=== PATIENT | female | born 1945 | race Caucasian/White ===

== ENCOUNTER → 2019-11-29 13:45 | Outpatient (CLI) | payer OTHER, SELFPAY ==
--- NOTE | ~2019-11-29 | DEXA_ITS ---
Bone Density Report Name: Emma Camacho Age: 74 Sex: Female Ethnicity: White Date of : 1945 Indication: postmenopausal; screening for osteoporosis; height loss; Referring Provider: NAKUL KENYON Study: Bone densitometry was performed. Exam Date: November 29, 2019 Accession number: [id number] Bone Density: Region BMD T-score Z-score Classification AP Spine (L1, L2, L3) 1.029 0.1 2.3 Normal Femoral Neck (Left) 0.664 -1.7 0.3 Osteopenia Total Hip (Left) 0.900 -0.3 1.3 Normal Femoral Neck (Right) 0.715 -1.2 0.7 Osteopenia Total Hip (Right) 0.914 -0.2 1.4 Normal Total Hip Mean 0.907 -0.3 1.4 Normal World Health Organization criteria for BMD impression classify patients as: Normal (T-score at or above -1.0), Osteopenia (T-score between -1.0 and -2.5), or Osteoporosis (T-score at or below -2.5). 10-year Fracture Risk(1): Major Osteoporotic Fracture 10% Hip Fracture 1.8% Reported Risk Factors: [place] (), Neck BMD=0.664, BMI=33.3 (1) FRAX(R) Version 3.08. Fracture probability calculated for an untreated patient. Fracture probability may be lower if the patient has received treatment. Previous Exams: Region Exam Age BMD T-score BMD Change BMD Change Date g/cm2 vs Baseline vs Previous AP Spine(L1, L2, L3) 11/29/2019 74 1.029 0.1 0.085* 0.124* 03/26/2017 72 0.905 -1.0 -0.039* -0.024* 02/26/2015 69 0.929 -0.8 -0.015 -0.015 02/15/2013 67 0.944 -0.7 0.000 0.000 01/05/2009 63 0.944 -0.7 Total Hip(Left) 11/29/2019 74 0.900 -0.3 -0.026 -0.032* 03/26/2017 72 0.933 -0.1 0.006 -0.016 02/26/2015 69 0.948 0.1 0.022 0.005 02/15/2013 67 0.943 0.0 0.017 0.017 01/05/2009 63 0.926 -0.1 Total Hip(Right) 11/29/2019 74 0.914 -0.2 0.033* 0.021 03/26/2017 72 0.894 -0.4 0.012 -0.023 02/26/2015 69 0.917 -0.2 0.035* -0.024 02/15/2013 67 0.941 0.0 0.059* 0.059* 01/05/2009 63 0.882 -0.5 *Denotes significance at 95% confidence level, LSC for AP Spine = 0.022 g/cm2, LSC for Total Hip = 0.027 g/cm2 Clinical Information Provided by Patient: Has used the following medications: Vitamin D, Calcium Patient maximum height was 62.5 Menopause Age: 42 No regular weight bearing exercise Does not regularly consume dairy prod
--- NOTE | ~2019-11-29 | MM_ITS ---
EXAMINATION: MM screening janna BI w viviana HISTORY: Screening mammogram TECHNIQUE: Craniocaudal and mediolateral oblique 3-D tomosynthesis images were obtained and synthetic 2-D images were generated. CAD analysis was submitted and interpreted. COMPARISON: 03/26/2017, 02/26/2015 bilateral digital screening mammogram examinations BREAST PARENCHYMAL COMPOSITION: The breasts are almost entirely fatty. FINDINGS: There is no evidence of suspicious mass, calcification, or architectural distortion to sugg est malignancy in either breast. There has been no suspicious interval change. IMPRESSION: 1. No mammographic evidence of malignancy. 2. Recommend routine screening mammography in one year. BI-RADS Category 1: Negative Reviewed, dictated and finalized at location A.
== END ==
PROVIDERS: Visit Provider Internal Medicine
DX: Z12.31 Encounter for screening mammogram for malignant neoplasm of breast (principal); Z78.0 Asymptomatic menopausal state; M85.852 Other specified disorders of bone density and structure, left thigh; M85.851 Other specified disorders of bone density and structure, right thigh
CPT/HCPCS: 77063; 77067; 77080

== ENCOUNTER 2022-10-16 09:31 | Outpatient (CLI) | payer OTHER, SELFPAY ==
[2022-10-16 19:07] LABS: Alanine Aminotransferase 28 U/L (6-35); Albumin Level 4.5 g/dL (3.5-5.1); Alkaline Phosphatase 48 U/L (38-126); Anion Gap 6 mmol/L (8-16); Aspartate Amino Transferase 32 U/L (14-36); Bilirubin,Total 0.5 mg/dL (0.2-1.3); Blood Urea Nitrogen 18 mg/dL (7-17); Calcium 8.9 mg/dL (8.4-10.2); Carbon Dioxide 29 mmol/L (22-30); Chloride 101 mmol/L (98-107); Estimated Glomerular Filt Rate 54; Glucose 98 mg/dL (65-110); Potassium 4.6 mmol/L (3.4-5.0); Sodium 136 mmol/L (137-145)
== END 2022-10-16 09:32 | disposition home or self-care (01) ==
LOC: ANHGOSHLAB 09:32
PROVIDERS: PCP Family Medicine; Visit Provider Family Medicine
DX: Z13.228 Encounter for screening for other metabolic disorders (principal); Z12.11 Encounter for screening for malignant neoplasm of colon; Z13.220 Encounter for screening for lipoid disorders
CPT/HCPCS: 36415; 80053

== ENCOUNTER 2022-10-22 10:37 | Outpatient (CLI) | payer OTHER, SELFPAY ==
[2022-10-22 20:09] LABS: IFOB Positive Control Positive; Immunochemical Fecal Occult Bl Negative (N)
[2022-10-22 21:16] LABS: Cholesterol 126 mg/dL (0-200); HDL Direct 32 mg/dL; Triglycerides 151 mg/dL (<150)
[2022-10-22 21:27] LABS: LDL Cholesterol Direct 60 mg/dL
== END 2022-10-22 10:38 | disposition home or self-care (01) ==
LOC: ANHGOSHLAB 10:39
PROVIDERS: PCP Family Medicine; Visit Provider Family Medicine
DX: E78.2 Mixed hyperlipidemia (principal); Z12.11 Encounter for screening for malignant neoplasm of colon
CPT/HCPCS: 36415; 80061

== ENCOUNTER → 2022-11-04 11:48 | Outpatient (CLI) | payer OTHER, SELFPAY ==
--- NOTE | ~2022-11-04 | MM_ITS ---
EXAMINATION: MM screening janna BI w viviana HISTORY: Screening mammogram TECHNIQUE: Craniocaudal and mediolateral oblique 3-D tomosynthesis images were obtained and synthetic 2-D images were generated. CAD analysis was submitted and interpreted. COMPARISON: 11/25/2019, 03/26/2017 bilateral screening mammogram examinations BREAST PARENCHYMAL COMPOSITION: The breasts are almost entirely fatty. FINDINGS: There is no evidence of suspicious mass, calcification, or architectural distortion to sugg est malignancy in either breast. There has been no suspicious interval change. IMPRESSION: 1. No mammographic evidence of malignancy. 2. Recommend routine screening mammography in one year. BI-RADS Category 1: Negative Reviewed, dictated and finalized at location A. GER TRANSITION
== END ==
PROVIDERS: PCP Family Medicine; Visit Provider Family Medicine
DX: Z12.31 Encounter for screening mammogram for malignant neoplasm of breast (principal)
CPT/HCPCS: 77063; 77067

== ENCOUNTER → 2023-04-14 11:27 | Outpatient (CLI) | payer OTHER, SELFPAY ==
--- NOTE | ~2023-04-14 | XR_ITS ---
Clinical Indication: Shortness of breath PA and lateral views of the chest: Comparison: 05/25/2009 Findings: The lungs are clear, without evidence of focal consolidation or pleural effusion. Cardiome diastinal silhouette is within normal limits. Bones and soft tissues are unremarkable. Impression: Normal chest. Reviewed, dictated and finalized at location . Impression: Normal chest.
== END ==
PROVIDERS: PCP Family Medicine; Visit Provider Family Medicine
DX: R06.02 Shortness of breath (principal)
CPT/HCPCS: 71046

== ENCOUNTER 2023-07-23 07:56 | Outpatient (CLI) | payer OTHER, SELFPAY ==
--- NOTE | ~2023-07-23 | NM_ITS ---
EXAMINATION: NM gin stress w perfusion DATE: 07/23/2023 11:01 INDICATION: Other forms of dyspnea. TECHNIQUE: Rest images were obtained following intravenous administration of 9.7 mCi Tc99m tetrofosmi n (Myoview). The patient was infused intravenously with Lexiscan (regadenoson). Then, 31.4 mCi Tc99m tetrofosmin (Myoview) was administered intravenously, and supine and prone stress images were obtaine d. Data was reconstructed into short axis and horizontal and vertical long axis SPECT images. Gated S PECT images were also obtained. COMPARISON: None. FINDINGS: There is no definite reversible or fixed perfusion abnormality to suggest ischemia or infar ction. There is no segmental wall motion abnormality. Left ventricular ejection fraction measures > 70%. IMPRESSION: 1. No definite ischemia or infarct. 2. Normal left ventricular ejection fraction measuring >70%. Reviewed, dictated and finalized at location A. 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
--- NOTE | 2023-07-23 08:19 | ECHO_ITS ---
Patient Info Name: Emma Camacho Age: 78 years : 1945 Gender: Female Ht: 62 in Wt: 175 lbs BSA: 1.90 m2 HR: 67 bpm BP: 125 / 101 mmHg Heart Rhythm: Sinus Rhythm Technical Quality: Good Exam Date: 07/23/2023 10:39 AM Exam Location: Echo Lab Patient Status: Outpatient Admit Date: 07/23/2023 Staff Ordering Physician: Fortino Nice DO Cupola Liner Helper: Davonte Stallings RDCS Attending Provider: Fortino Nice DO Referring Physician: Arlet OCHOA; Exam Type: CA echo doppler color flow Study Info Indications - other form of dyspnea Complete two-dimensional, color flow and Doppler transthoracic echocardiogram is performed. Summary 1. Complete two-dimensional, color flow and Doppler transthoracic echocardiogram is performed. 2. Left ventricular chamber dimension is normal. 3. Left ventricular systolic function is normal, estimated at 65-70%. 4. The left ventricular diastolic function is grade I diastolic dysfunction. 5. E/e' 8 is minimally elevated. 6. There is trace tricuspid valve regurgitation. 7. No pulmonary hypertension, estimated pulmonary arterial systolic pressure is 21 mmHg. Left Ventricle E/e' 8 is minimally elevated. Left ventricular chamber dimension is normal. Left ventricular systolic function is normal, estimated at 65-70%. The left ventricular diastolic function is grade I diastolic dysfunction. Right Ventricle Right ventricular systolic function is normal and with normal TAPSE 2.6 cm. Right ventricular chamber dimension is normal. Left Atria Left atrial chamber dimension is normal. Right Atria Right atrial chamber dimension is normal. Aortic Valve The aortic valve is trileaflet. There is no aortic valve stenosis. There is no aortic valve regurgitation. Pulmonic Valve There is no pulmonic regurgitation. Mitral Valve There is no mitral valve stenosis. There is no mitral valve regurgitation. Tricuspid Valve There is trace tricuspid valve regurgitation. No pulmonary hypertension, estimated pulmonary arterial systolic pressure is 21 mmHg. Pericardium/Pleural There is no pericardial effusion. Inferior Vena Cava Normal inferior vena cava with >50% collapse upon inspiration consistent with normal right atrial pressure, 5 mmHg. Aorta The aortic root size at the sinus of Valsalva is normal. Left Ventricular Outflow Tract Name Value Normal LVOT 2D LVOT Diameter 1.9 cm LVOT Doppler LVOT Peak Gradient 5 mmHg LVOT Mean Gradient 2 mmHg LVOT VTI 22 cm LVOT VTI/AV VTI Ratio 0.6 LVOT Stroke Volume 62 ml LVOT CO 3.6 l/min LVOT CI 1.9 l/min/m2 Pulmonic Valve Name Value Normal RVOT Doppler RVOT Peak Gradient 2 mmHg PV Doppler
--- NOTE | 2023-07-23 08:19 | EST_ITS ---
Patient Info Name: Emma Camacho Age: 78 years : 1945 Gender: Female Ht: 62 in Wt: 175 lbs BSA: 1.90 m2 Exam Date: 07/23/2023 9:20 AM Exam Location: Echo Lab Patient Status: Outpatient Admit Date: 07/23/2023 Staff Ordering Physician: Fortino Nice DO Attending Provider: Fortino Nice DO Exercise Technologist: Katherin Guthrie CT Exercise Physician: Zay Clifton DO Exam Type: CA stress gin w NM Study Info Indications R06.00 - Dyspnea, unspecified A regadenoson stress test was performed. Summary 1. 1. Negative lexiscan stress test for ischemic ST changes by ECG criteria. 2. 2. Stable hemodynamics throughout the test. 3. 3. Nuclear scan to follow and will be reported separately. Please correlate with it. 4. 4. Patient informed of the above results. Protocol: Lexiscan Stress ECG Details Stage: REST Duration (min): 2 min : 12 sec HR (bpm): 57 SBP (mmHg): 138 DBP (mmHg): 80 Stage: REST Duration (min): 5 min : 34 sec HR (bpm): 59 SBP (mmHg): 138 DBP (mmHg): 80 Stage: REST Duration (min): 5 min : 45 sec HR (bpm): 58 SBP (mmHg): 138 DBP (mmHg): 80 Stage: STAGE 1 Duration (min): 0 min : 59 sec HR (bpm): 75 SBP (mmHg): 110 DBP (mmHg): 73 Stage: RECOVERY Duration (min): 1 min : 0 sec HR (bpm): 83 SBP (mmHg): 110 DBP (mmHg): 73 Stage: RECOVERY Duration (min): 2 min : 0 sec HR (bpm): 71 SBP (mmHg): 110 DBP (mmHg): 73 Stage: RECOVERY Duration (min): 3 min : 0 sec HR (bpm): 76 SBP (mmHg): 108 DBP (mmHg): 52 Stage: RECOVERY Duration (min): 3 min : 38 sec HR (bpm): 77 SBP (mmHg): 108 DBP (mmHg): 52 Rest HR: 58 bpm Peak HR: 83 bpm Rest Sys BP: 138 mmHg Peak Sys BP: 110 mmHg Max Pred HR: 144 bpm % Max Pred HR: 58 % Target HR: 122 bpm Max RPP: 9,130 bpm*mmHg Termination Reason: Completed protocol Cardiac Symptoms: Shortness of breath Total Time: 1 min : 0 sec Rest Daley BP: 80 mmHg Peak Daley BP: 73 mmHg Total Dose: 0.4 mg Resting ECG Sinus rhythm, PRWP. Stress ECG No ST changes. Arrhythmias None. Report Signatures
== END 2023-07-23 07:57 | disposition home or self-care (01) ==
PROVIDERS: PCP Family Medicine; Visit Provider Family Medicine
DX: R06.09 Other forms of dyspnea (principal)
CPT/HCPCS: 78452; 93017; 93306; A9502; J2785

== ENCOUNTER 2023-11-16 11:17 | Outpatient (CLI) | payer OTHER, SELFPAY ==
--- NOTE | ~2023-11-16 | MM_ITS ---
EXAMINATION: MM screening janna BI w viviana HISTORY: Screening mammogram TECHNIQUE: Craniocaudal and mediolateral oblique 3-D tomosynthesis images were obtained and synthetic 2-D images were generated. CAD analysis was submitted and interpreted. COMPARISON: No prior mammogram is available for comparison at this institution. BREAST PARENCHYMAL COMPOSITION: The breasts are almost entirely fatty. FINDINGS: There is no evidence of suspicious mass, calcification, or architectural distortion to sugg est malignancy in either breast. There has been no suspicious interval change. IMPRESSION: 1. No mammographic evidence of malignancy. 2. Recommend routine screening mammography in one year. BI-RADS Category 1: Negative Reviewed, dictated and finalized at location A.
== END 2023-11-16 11:18 ==
LOC: MICIMG 11:18
PROVIDERS: PCP Family Medicine; Visit Provider Family Medicine
DX: Z12.31 Encounter for screening mammogram for malignant neoplasm of breast (principal)
CPT/HCPCS: 77063; 77067

== ENCOUNTER 2024-04-08 11:11 | Outpatient (CLI) | payer OTHER, SELFPAY ==
[2024-04-08 13:40] LABS: Alanine Aminotransferase 33 U/L (6-35); Albumin Level 4.4 g/dL (3.5-5.1); Alkaline Phosphatase 51 U/L (38-126); Anion Gap 10 mmol/L (4-12); Aspartate Amino Transferase 35 U/L (14-36); Bilirubin,Total 0.4 mg/dL (0.2-1.3); Blood Urea Nitrogen 14 mg/dL (7-17); Calcium 9.7 mg/dL (8.4-10.2); Carbon Dioxide 27 mmol/L (22-30); Chloride 102 mmol/L (98-107); Cholesterol 122 mg/dL (0-200); Estimated Glomerular Filt Rate > 60; Glucose 103 mg/dL (65-110); HDL Direct 35 mg/dL; Potassium 4.3 mmol/L (3.4-5.0); Sodium 139 mmol/L (137-145); Triglycerides 159 mg/dL (<150)
[2024-04-08 13:51] LABS: LDL Cholesterol Direct 59 mg/dL
== END 2024-04-08 11:12 | disposition home or self-care (01) ==
LOC: ANHGOSHLAB 11:12
PROVIDERS: PCP Family Medicine; Visit Provider Family Medicine
DX: E78.5 Hyperlipidemia, unspecified (principal); Z13.220 Encounter for screening for lipoid disorders; Z13.228 Encounter for screening for other metabolic disorders
CPT/HCPCS: 36415; 80053; 80061

== ENCOUNTER 2024-10-21 15:04 | Outpatient (CLI) | payer OTHER, SELFPAY ==
--- OUTSIDE RECORDS SUMMARY | 2024-10-21 15:07 | XMS_ITS | Continuity of Care Document ---
Author Organization [facility] Address [address] [place] [address] [address] [place] [address] Phone Care Team Providers Care Inspector Wire [employer] Name Role Phone Demian Marquis Unavailable Unavailable Procedures Procedure Date Office/outpatient Visit, [facility] Advance Directives Directive Yes / No Effective Date File Name No Information Encounters Encounter Description Practice Location Reason(s) For Visit Diagnoses Date Provider Providers Copied on Encounter Office/outpat ient Visit, [facility], [address] [place], [place], [id number], [place] tel:[phone] [address] [facility] No Information 0 Kandis Arciniega. [address] , [address], [place], [address], [place]. tel:[phone] Family History Family Member Type Diagnosis Age At Onset No Information Payers Payer name Insurance type Covered constitution party ID Authoriza tion(s) No Information Social History Type Description Quantity Date Captured Comments Sex Female Smoking Status No Information Chief Complaint And Reason For Visit No Information Reason For Referral Reason For Referral No Information History Of Present Illness Encounter Date Complaint History Of Prese nt Illness No Information Functional Status Date Functional Assessmen t No Information Instructions Date Instruction Additional Infor mation No Information Assessments Type Assessment Date No Information Patient Care Teams Name Effective Dates (start - stop) Status Members No Information
--- OUTSIDE RECORDS SUMMARY | 2024-10-21 15:07 | XMS_ITS | Data Portability ---
Author Organization [facility] [place] Address [address] [place] [address] Assessment Encounter Date Assessment Date Assessment LastModified by Organization Details LastModified Time 02/08/2020 02/08/2020 Annual gynecological exam performed. Patient will come back in a year unless there are new symptoms. [email or web address] Not available 02/08/2020 11:56:35 Plan of Treatment Reminders Order Date Submit Date Provider Last Modified By Organization Details Last Modified Time Details Appointments None recorded. Lab None recorded. Referral None recorded. Procedures None recorded. Surgeries None recorded. Imaging DEXA, axial skeleton + vertebral fracture assessment 2019 020 [facility], [address] [place] [address], [place], [address], 1 05:05:23 Medication Orders None recorded. Patient TargetsNo targets recorded. Patient InstructionsNo instructions recorded. Reason for Referral None Reported. Problems Name Problem SNOMED Code Status Onset Date Resolution Date Notes Provider Name and Address Organization Details Recorded Time Evaluation finding Active 2016 Hematuria, unspecified ;Recorded Elsewhere: No Location : [facility] S[facility] ce: EHR Chronic : N Practice ID: [id number] Billab le Time: 04:11:17 PM Not Available [facility] 0 16:04:[address] Concept Active 2016 Encntr for general adult medical exam w/o abnormal findings;Re corded Elsewhere: No Location : [facility] S[facility] ce: EHR Chronic : N Practice ID: 0001 Billab le Time: 03:00:00 PM Not Available [facility] 0 16:04:53 Screening for malignant neoplasm of cervix Active 2012 Screening for malignant neoplasms of the cervix;Kb rded Elsewhere: No Location : [facility] S[facility] ce: EHR Chronic : N Practice ID: 0001 Billab le Time: 01:00:00 PM Not Available [facility] 0 16:04:53 Screening for osteoporos is Active 2014 Special screening for osteoporosi s;Recorded Elsewhere: No Location : [facility]: EHR Chronic : N Practice ID: 0001 Billab le Time: 04:10:34 PM Not Available [facility] 0 16:04:53 Screening for malignant neoplasm of rectum Active 2016 Encounter for screening for malignant neoplasm of rectum;Kb rded Elsewhere: No Location : [facility] S[facility]: EHR Chronic : N Practice ID: 0001 Billab le Time: 03:00:00 PM Not Available [facility] 0 16:04:53 Adult health examinatio n Active 2014 ROUTINE MEDICAL EXAM;Record ed Elsewhere: No Location : [facility] S[facility] ce: EHR Chronic : N Practice ID: 0001 Billab le Time: 11:00:00 AM Not Available [facility] 0 16:04:[address] Concept Active 2016 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) w/o abn findings;Re corded Elsewhere: No Location : [facility] S[facility] ce: EHR Chronic : N Practice ID: 0001 Billab le Time: 03:00:00 PM Not Available [facility] 0 16:04:53 Specialize d medical examinatio n Active 2012 Gynecologic al Examination ;Recorded Elsewhere: No Location : [facility] S[facility] ce: EHR Chronic : N Practice ID: 0001 Billab le Time: 01:00:00 PM Not Available [facility] 0 16:04:[address] Concept Active 2016 Encounter for general adult medical exam w abnormal findings;Pr actice ID: [id number] Not Available [facility] 0 16:04:53 Problem Notes None recorded. Procedures Surgical History Date Name Laterality Status Provider Name and Address Organization Details Recorded Time Tubal Ligation completed Echo Johan [facility] 02/08/2020 11:58:05 Cholecystectomy completed Echo Prado [facility] 02/08/2020 11:58:10 Imaging Results None recorded. Procedure Notes None recorded. Medical Equipment None Reported. Allergies No known drug allergies Medications Name Sig Start Date Stop Date Status Note LastModified by Organization Details LastModified Time Macrobid 100 mg capsule take 1 capsule by oral route every 12 hours with food 03/14 completed Prescrib ed Elsewher e: No Locat ion: [facility] odify By: juana nielsonuntmoses DateTime : 03/05/20 17 10:30:05 AM Not Available Not Available Not Available quinapril 10 mg tablet take 1 tablet by oral route every day active Prescrib ed Elsewher e: Yes Loca tion: [facility] odify By: [email or web address] trick En counter DateTime : 02/03/20 13 01:00:00 PM Not Available Not Available Not Available simvastat in 20 mg tablet take 1 tablet by oral route every day in the evening active Prescrib ed Elsewher e: Yes Loca tion: [facility] odify By: [email or web address] trick En counter DateTime : 02/03/20 13 01:00:00 PM Not Available Not Available Not Available simvastat in active Not Available Not Available Not Available quinapril active Not Available Not Randa ilable Not Available Vitals Date Recorded Body height Body mass index (BMI) Body weight Systolic blood pressure Diastolic blood pressure Provider Name and Address Organization Details Last Updated DateTime 02/08/2020 1889.76 cm 0.2 kg/m2 04993.22 g 118 mm[Hg] 69 mm[Hg] Echo Prado [facility] 0 12:03:38 Social History None recorded. Functional Status None recorded. Mental Status None recorded. Family History Relationship Description Onset Age of this Age Resolved Age Notes LastModified by Organization Details LastModified Time Father Heart disease [email or web address] Not available 2019 11:57:32 Paternal Grandmother Diabetes mellitus [email or web address] Not available 2019 11:57:45 Maternal Grandmother Diabetes mellitus [email or web address] Not available 2019 11:57:45 Paternal Grandfather Seizure disorder [email or web address] Not available 2019 11:57:56 Notes:Father: Congenital hea rt disease Maternal grandmother: Diabetes mellitus Paternal grandfather: Seizure disorder Paternal grandmother: Diabetes mellitus Medical History Condition Response Allergies (Food, seasonal, environmental ) N Other N Drug/Latex Allergies/Reactions N Blood Transfusion N Breast Cancer N Dermatologic Disorders N Lung Disease N Defects or Inherited Disease N Breast Problem N Gestational Diabetes N Hematologic disorders N Anesthesia Complications N History of STI N Deep Vein Thrombosis N Polycystic ovary syndrome N Anxiety Disorder N Autoimmune disease N Arthritis N Polyps N Infertility N Acid Reflux (GERD) N History of abnormal pap N Cancer N Varicosities N Stroke N Neurologic/Epilepsy N Endometriosis N High Cholesterol N Fibromyalgia N Headaches N Kidney Disease N Heart Problems N Thyroid Problems N Kidney or Bladder Problems N GI Problems N Eating Disorder N Anemia N Art (IVF or FET) N Psychiatric Illness N Ovarian Cancer N Diabetes N Pulmonary (TB, Asthma) N Hepatitis/Liver Disease N Eczema N Urinary Tract Infection N Abuse/Domestic Violence N Asthma N Trauma/Violence N Depression/ depression N Heart Disease N Pre-Eclampsia N Hypertension N Osteoporosis N Thrombophilias N Gynecological HistoryNo gynecological history recorded. Obstetrics History GPAL:G 0 P 0 0 0 0 Past Encounters Encounter ID Performer Location Encounter Start Date Encounter Closed Date Diagnosis/Indication Diagnosis SNOMED-CT Code Diagnosis ICD10 Code Diagnosis Note [id number] Oanh Null [facility] [address] [address] 02/08/2020 11:54:26 02/08/2020 12:44:26 Gynecologic examination 87355771 Z01.419 Take Calcium with Vitamin D 12-1500mg daily. Do monthly self breast exams. It is advised to get annual flu shot in the fall and she could obtain at [facility] or [facility] care clinic. If you haven't received the Tdap vaccine in the last 10 years you should obtain one as well. Have mammogram yearly, bone density every 2-3 years and colonoscop y every 5-10 years depending on findings and history. Engage in daily exercise of low impact aerobic exercise 45-60 minutes 4-5 times weekly. Avoid tobacco and illicit drugs as well as using moderation with alcohol intake less than 1-2 8 oz beverages daily. This lifestyle behavior pattern will lead to less health conditions and longer life span. If BMI greater than 25 weight watchers or dietary consult advised. Questions have been answered. Patient appears to understand instructio ns, but if you have any further questions call or respond to this email Screening for osteoporosis [id number] Z13.820 Health Concerns Section Related Observation LastModified by Organization Detai ls LastModified Time None Recorded Concern Status LastModified by Organization Details LastModified Time None Recorded Advance Directives Directive None Recorded Payers None recorded. Notes Date Note Type Note Provider Name and Address Organization Details Recorded Time 02/08/2020 text/html Annual GYNReport ed bypatient.History: no gynecologic complaints Menstrual cycle:Normal menses Urinary symptoms:No hematuria; No incontinence Vulva:No genital lesion Vagina:Normal vaginal discharge Breast:No breast pain; No breast lump; No nipple discharge Current Contraception:post menopause Sexual complaints:No sexual complaints; No pain during intercourse; Normal libido Menopausal Symptoms:No menopausal symptoms; Normal vaginal lubrication Psychological symptoms:No depression; No anxiety; No PMDD Preventive measures:Encourage self breast examination; Encourage regular exercise; Encourage no tobacco use; Encourage regular mammograms starting age 40; Mammogram performed within the past year; Up to date on colonoscopy screening; Dexa due 2019 Oanh Null, [facility]- [address], [place], [address], [facility] 02/08/2020 12:24:42 OBGyn Episode Ob Episode Information Episode Created Date Number of Fetuses Patient Bloodtype Patient rh Status Prepregnancy Weight lbs Domestic Partner Domestic Partner Phone Father Name Manager Of Sustainability Status 02/08/20 20 1 CLOSED Fetus Data First Name Last Name Admitted to NICU Weight (g) Sex Living Outcome Pediatric Complications Fetus ID Race Codes Race Delivery Type 194 Naldo Calculation Initial Naldo Date Initial Exam Date Initial Exam Provider Initial Ultrasound Date Last Menstrual Period Date Ultra Sound Weeks Gestation 0 Eighteen To Twenty Week Naldo Update Ultra Sound Date Fundal Height At Umbil Quickening Date Ultra Sound Latest Weeks Gestation Final Naldo Confirmed By Final Naldo Confirmed Date Final Naldo Date Ultra Sound Latest Days Gestation 0 0 Menstrual History Last Menstrual Date Menses Monthly On Bcp Conception Prior Menses Frequency Hcg Plus Date Menarche Onset Age Delivery Information Delivery Date Delivery Type Labor Anesthesia Weeks Gestation Incision Type Labor Labor Length Hrs Delivered By Post Complications Tubal Sterilization Discharge Date Comments 0 Discharge Information Feeding Method Contraceptive Method Maternal HG B and HCT Levels Ob Episode Information Episode Created Date Number of Fetuses Patient Bloodtype Patient rh Status Prepregnancy Weight lbs Domestic Partner Domestic Partner Phone Father Name Manager Of Sustainability Status 02/08/20 20 1 CLOSED Fetus Data First Name Last Name Admitted to NICU Weight (g) Sex Living Outcome Pediatric Complications Fetus ID Race Codes Race Delivery Type 1947 Naldo Calculation Initial Naldo Date Initial Exam Date Initial Exam Provider Initial Ultrasound Date Last Menstrual Period Date Ultra Sound Weeks Gestation 0 Eighteen To Twenty Week Naldo Update Ultra Sound Date Fundal Height At Umbil Quickening Date Ultra Sound Latest Weeks Gestation Final Naldo Confirmed By Final Naldo Confirmed Date Final Naldo Date Ultra Sound Latest Days Gestation 0 0 Menstrual History Last Menstrual Date Menses Monthly On Bcp Conception Prior Menses Frequency Hcg Plus Date Menarche Onset Age Delivery Information Delivery Date Delivery Type Labor Anesthesia Weeks Gestation Incision Type Labor Labor Length Hrs Delivered By Post Complications Tubal Sterilization Discharge Date Comments 0 Discharge Information Feeding Method Contraceptive Method Maternal HG B and HCT Levels
[2024-10-21 17:56] LABS: Hemoglobin A1C 6.1 % (<5.7)
[2024-10-21 17:58] LABS: Alanine Aminotransferase 25 U/L (6-35); Albumin Level 3.9 g/dL (3.5-5.1); Alkaline Phosphatase 46 U/L (38-126); Anion Gap 10 mmol/L (4-12); Aspartate Amino Transferase 36 U/L (14-36); Bilirubin,Total 0.5 mg/dL (0.2-1.3); Blood Urea Nitrogen 16 mg/dL (7-17); Carbon Dioxide 27 mmol/L (22-30); Chloride 103 mmol/L (98-107); Estimated Glomerular Filt Rate > 60; Glucose 103 mg/dL (65-110); Potassium 4.6 mmol/L (3.4-5.0); Sodium 140 mmol/L (137-145)
== END 2024-10-21 15:05 | disposition home or self-care (01) ==
LOC: ANHGOSHLAB 15:05
PROVIDERS: PCP Family Medicine; Visit Provider Family Medicine
DX: R73.9 Hyperglycemia, unspecified (principal); I10 Essential (primary) hypertension
CPT/HCPCS: 36415; 80053; 83036

== ENCOUNTER 2025-01-06 12:31 | Outpatient (CLI) | payer OTHER, SELFPAY ==
--- NOTE | ~2025-01-06 | MM_ITS ---
EXAMINATION: MM screening janna BI w viviana HISTORY: Screening TECHNIQUE: Craniocaudal and mediolateral oblique 3-D tomosynthesis images were obtained and synthetic 2-D images were generated. CAD analysis was submitted and interpreted. COMPARISON: Comparison to multiple prior studies sequentially, with oldest reviewed study dated 03/26. BREAST PARENCHYMAL COMPOSITION: Not Dense: The breasts are almost entirely fatty. FINDINGS: There is no evidence of suspicious mass, calcification, or architectural distortion to sugg est malignancy in either breast. There has been no suspicious interval change. IMPRESSION: 1. No mammographic evidence of malignancy. 2. Recommend routine screening mammography in one year. BI-RADS Category 1: Negative Reviewed, dictated and finalized at location A.
== END 2025-01-06 12:32 | disposition home or self-care (01) ==
LOC: MICIMG 12:32
PROVIDERS: PCP Family Medicine; Visit Provider Family Medicine
DX: Z12.31 Encounter for screening mammogram for malignant neoplasm of breast (principal)
CPT/HCPCS: 77063; 77067

== ENCOUNTER 2025-03-26 08:29 | Emergency (ER) | payer OTHER, SELFPAY ==
[2025-03-26 08:41] VITALS: BP 121/59; PULSE 89; RESP 16; TEMP 37.7; O2SAT 94
[2025-03-26 08:53] LABS: EDCOVIDSCREEN Positive (Negative); EDINFLUASCREEN Positive (Negative); EDINFLUBSCREEN Negative (Negative); EDSTREPNEGPOS1 Negative (Negative)
--- NOTE | 2025-03-26 09:05 | ED.URI ---
HPI - URI/Sore Throat General Chief Complaint: Upper Respiratory Infection Stated Complaint: Sore Throat Time Seen by Provider: 03/26/25 08:46 Source: patient and RN notes reviewed Mode of arrival: ambulatory Limitations: no limitations History of Present Illness HPI Narrative: Patient presents today with a 2 day history of sore throat, cough, headache, subjective fever. Denies shortness of or difficulty swallowing. She has tried some Mucinex DM without relief. Reports some COVID exposure prior to onset of symptoms. Denies history of asthma or COPD. Related Data Allergies Allergy/AdvReac Type Severity Reaction Status Date / Time No Known Allergies Allergy Unknown Verified 03/26/25 08:49 [facility] Past Medical History Medical History Recurrent herpes labialis Environmental and seasonal allergies Mixed hyperlipidemia Essential (primary) hypertension Surgical History Surgical History History of cataract surgery (~2017) b/l History of tubal ligation (~1979) History of cholecystectomy (~1970) History of appendectomy (~1970) Family History Family History Sibling Hypertension Father Cerebrovascular accident Mother Cerebrovascular accident Social History Social History Smoking status: Former smoker Second hand tobacco smoke exposure: No Smoking end date: 09/07/86 Alcohol intake: current Drinks per week: 1 Alcohol use details: beer, radha, rarely Substance use: never Substance use type: does not use Lack of Transportation: No Current Housing: I Have Housing Concerned About Future Housing: No Difficulty Paying Gas/Electric Bills: No Difficulty Paying for Meds: No Currently Unemployed: No Education: High School Diploma/GED Difficulty w/ Childcare or Family Care: No Gender identity (if verbalized by the patient): Female Agree to blood products: Yes Comments At time of signature, I have reviewed and agree with nursing past medical, surgical, social and family history unless otherwise noted. Please see nursing chart for further information. There is no relevant family history pertinent to the presenting complaint Exam Narrative: GENERAL: Mildly ill-appearing, well-nourished, and in no acute distress. HEAD: Normocephalic, atraumatic. EYES: EOMI. No redness or drainage. Conjunctivae normal. ENT: Mucous membranes pink and moist. Nares clear. No rhinorrhea. TMs normal bilaterally. Throat erythematous without edema or exudate. Uvula midline. NECK: Normal AROM. Supple. No lymphadenopathy. CHEST: No respiratory distress. Clear to auscultation. HEART: Regular rate and rhythm. No murmur appreciated. EXTREMITIES: Normal range of motion. No edema. SKIN: Warm, dry, no rash. Capillary refill normal. Normal skin turgor. NEURO: No focal deficits. Alert and oriented x3. Gait steady. PSYCH: Normal affect. No signs of depression or anxiety. Course Course Level of Care: Express Care Visit Vital Signs Vital signs: Vital Signs Temperature 99.9 F H 03/26/25 08:41 Pulse Rate 89 03/26/25 08:41 Respiratory Rate 16 03/26/25 08:41 Blood Pressure 121/59 L 03/26/25 08:41 Pulse Oximetry 94 03/26/25 08:41 Temperature 99.9 F H 03/26/25 08:41 Pulse Rate 89 03/26/25 08:41 Respiratory Rate 16 03/26/25 08:41 Blood Pressure 121/59 L 03/26/25 08:41 Pulse Oximetry 94 03/26/25 08:41 Reviewed MDM - URI/Sore Throat MDM Narrative Medical decision making narrative: 72-year-old female patient presents with a 2 day history of sore throat, cough, headache, subjective fever without shortness of breath, chest pain, difficulty swallowing. She has tested positive for COVID and influenza a. Upon exam her throat is red without edema or exudate, but exam is otherwise negative. After discussion, patient will take Tamiflu as she is still within the window, but declines Paxlovid. Vital signs stable. She is stable for outpatient treatment. Anticipatory guidance given. Differential Diagnosis Differential diagnosis: Likely upper respiratory infection, otitis media, viral infection, influenza, pharyngitis and other (Strep throat, COVID) Lab Data Attestation: I reviewed the patient's lab results. Labs: Lab Results 03/26/25 Range/Units 08:51 POC Influenza A Ag Positive (Negative) POC Influenza B Ag Negative (Negative) POC SARS CoV-2 Ag Positive (Negative) POC Grp A Strep Screen Negative (Negative) Critical Care Time Critical Care Time Critical Care Time: No Discharge Plan Discharge Clinical Impression: COVID-19, Influenza A Patient Disposition: Home Condition: Stable Instructions: Influenza (DC), COVID-19 (Coronavirus Disease 2019) (ED) Additional Instructions: You have tested positive for COVID-19 and influenza A. Please take the Tamiflu as prescribed until gone. Rest and stay hydrated. Continue Mucinex at home if needed. Take Tylenol for pain or fever. If you develop worsening symptoms such as chest pain, shortness of breath, difficulty swallowing, persistent fever greater than 100.3, please go to the ER immediately for further evaluation and treatment. Patient Language: Nigerien Prescriptions: New oseltamivir [Tamiflu] 75 mg capsule 75 mg PO Q12H 5 Days Qty: 10 0RF No Action lisinopril 10 mg tablet 10 mg PO DAILY Qty: 90 3RF rosuvastatin 10 mg tablet 10 mg PO QHS Qty: 90 3RF fluticasone propionate 50 mcg/actuation spray,suspension See Rx Instructions .ROUTE .COMPLEX Qty: 48 1RF Dose Instruction: ADMINISTER 2 SPRAYS INTO EACH NOSTRIL DAILY Rx Instructions: ADMINISTER 2 SPRAYS INTO EACH NOSTRIL DAILY loratadine 10 mg tablet 10 mg PO DAILY Qty: 90 4RF Follow-up/Referrals: Lance Mena MD [Primary Care Provider] - Time of Disposition: 09:10
== END 2025-03-26 09:13 | disposition home or self-care (01) ==
PROVIDERS: Emergency Provider Nurse Practitioner; PCP Family Medicine
DX: U07.1 COVID-19 (principal); J10.1 Influenza due to other identified influenza virus with other respiratory manifestations; Z87.891 Personal history of nicotine dependence; I10 Essential (primary) hypertension; E78.2 Mixed hyperlipidemia
CPT/HCPCS: 87426; 87804; 87880; 99213; G0463

== ENCOUNTER 2025-04-10 11:55 | Outpatient (CLI) | payer OTHER, SELFPAY ==
--- NOTE | ~2025-04-10 | XR_ITS ---
AP view of the pelvis and AP and lateral views of the right hip Clinical history: Pain Findings: No acute fracture or dislocation is seen. Osseous alignment is anatomic. Bilateral hip and SI joint spaces are preserved. Soft tissues are unremarkable. Impression: No significant abnormality is seen. Reviewed, dictated and finalized at [facility]. Impression: No significant abnormality is seen.
== END 2025-04-10 11:56 | disposition home or self-care (01) ==
LOC: GOSHIMG 11:55
PROVIDERS: PCP Nurse Practitioner Family; Visit Provider Nurse Practitioner Family
DX: M25.551 Pain in right hip (principal); R20.0 Anesthesia of skin; R20.2 Paresthesia of skin
CPT/HCPCS: 73502

== ENCOUNTER 2025-04-10 12:31 | Outpatient (CLI) | payer OTHER, SELFPAY ==
[2025-04-10 15:10] LABS: Hematocrit 41.8 % (37.0-47.0); Hemoglobin 13.3 g/dL (12.0-15.0); Immature Granulocyte Percent A 0.4 % (0-0.5); Lymphocytes Absolute Auto 2.04 K/mm3 (0.9-3.2); Mean Corpuscular HGB Conc 31.8 g/dl (32-36); Mean Corpuscular Hemoglobin 30.4 pg (26-34); Mean Corpuscular Volume 95.4 fl (80-100); Nucleated Red Blood Cells Absolute Auto 0.000 K/mm3 (0.0-0.012); Nucleated Red Blood Cells Perc 0.0 % (0.0-0.2); Platelet Count Result 321 k/mm3 (150-375); Red Blood Count 4.38 M/mm3 (4.2-5.4); White Blood Count 7.8 K/mm3 (4.5-10.0)
[2025-04-10 15:21] LABS: Alanine Aminotransferase 42 U/L (6-35); Albumin Level 3.9 g/dL (3.5-5.1); Alkaline Phosphatase 60 U/L (38-126); Anion Gap 5 mmol/L (4-12); Aspartate Amino Transferase 52 U/L (14-36); Bilirubin,Total 0.6 mg/dL (0.2-1.3); Blood Urea Nitrogen 16 mg/dL (7-17); Calcium 9.1 mg/dL (8.4-10.2); Carbon Dioxide 28 mmol/L (22-30); Chloride 102 mmol/L (98-107); Cholesterol 112 mg/dL (0-200); Estimated Glomerular Filt Rate > 60; Glucose 89 mg/dL (65-110); HDL Direct 25 mg/dL; Magnesium 2.5 mg/dL (1.6-2.3); Potassium 4.0 mmol/L (3.4-5.0); Sodium 135 mmol/L (137-145); Total Protein 7.2 g/dL (6.3-8.2); Triglycerides 165 mg/dL (<150)
[2025-04-10 15:54] LABS: Thyroid Stimulating Hormone Reflex 0.599 uIU/mL (0.465-4.68)
[2025-04-10 16:16] LABS: Vitamin B12 969.0 pg/mL (239-931)
[2025-04-10 16:55] LABS: Hemoglobin A1C 6.3 % (<5.7)
== END 2025-04-10 12:32 | disposition home or self-care (01) ==
PROVIDERS: PCP Nurse Practitioner Family; Visit Provider Nurse Practitioner Family
DX: R73.03 Prediabetes (principal); I10 Essential (primary) hypertension; E78.2 Mixed hyperlipidemia; E55.9 Vitamin D deficiency, unspecified
CPT/HCPCS: 36415; 80053; 80061; 82306; 82607; 83036; 83735; 84443; 85025

== ENCOUNTER 2025-06-09 10:33 | Emergency (ER) | payer OTHER, SELFPAY ==
--- NOTE | ~2025-06-09 | XR_ITS ---
EXAMINATION: XR ankle LT min 3V DATE: 06/09/2025 11:02 INDICATION: Left ankle injury post fall TECHNIQUE: Anteroposterior, oblique, mortise, and lateral views of the left ankle were obtained. COMPARISON: None. FINDINGS: Small minimally distracted avulsion fracture at the distal tip of the lateral malleolus with mild overlying soft tissue swelling. Bone alignment is otherwise normal. No other fractures identified. Mild osteoarthritis at the first metatarsophalangeal joint. Remaining joint spaces are relatively preserved. Small Achilles and plantar calcaneal spurs. Additional small diffuse hepatic ossification at the distal Achilles tendon. No ankle joint effusion. IMPRESSION: 1. Small minimally distracted avulsion fracture at the distal tip of the lateral malleolus. Reviewed, dictated and finalized at location A. IMPRESSION: 1. Small minimally distracted avulsion fracture at the distal tip of the latera l malleolus.
--- NOTE | 2025-06-09 10:39 | ED.LOWEXIN ---
HPI - Extremity Injury (Lower) General Chief Complaint: Extremity Injury, Lower Stated Complaint: L ankle injury Time Seen by Provider: 06/09/25 10:48 Source: patient, RN notes reviewed and old records reviewed Mode of arrival: ambulatory Limitations: no limitations History of Present Illness HPI Narrative: 80 year old female who presents to [facility] [facility] with complaints of walking her dog about 30 minutes prior to arrival and stepped wrong rolling her left ankle outward and falling on her right side with abrasion to her right proximal lateral lower leg noted. She reports pain to the left lateral ankle with swelling noted and palpable tenderness with patient reporting increased pain with movement and ambulation. complaint: ankle injury (left) Onset (ago): minute(s) (30 minutes prior to arrival) Injury: Left: ankle (lateral) Type of Injury: other (rolled ankle outward) Place: street/outdoors Severity scale (1-10): 5 Associated symptoms: swelling and able to partially bear weight Treatments prior to arrival: other (none) Related Data Home Medications ?Medication ?Instructions ?Recorded ?Confirmed ?Last Taken ?Type pobaxiri-pwx-bqjsu ac 400 1 tablet PO DAILY 04/10/25 04/10/25 Unknown History mcg-calcium carb 500 mg-vit K1 20 mcg tablet (Women's 50 Plus Multivitamin) Allergies Allergy/AdvReac Type Severity Reaction Status Date / Time No Known Allergies Allergy Unknown Verified 06/09/25 10:45 Review of Systems Review of Systems: CONSTITUTIONAL: Denies fever, chills, or sweats. EYES: Denies visual changes, redness, or discharge. ENT: Denies rhinorrhea, congestion, sore throat, or otalgia. CARDIOVASCULAR: Denies chest pain, palpitations, or edema. RESPIRATORY: Denies cough or dyspnea. GASTROINTESTINAL: Denies abdominal pain, nausea, vomiting, or diarrhea. GENITOURINARY: Denies dysuria or hematuria. SKIN: Denies rash or itching. MUSCULOSKELETAL: Denies back pain,positive for left ankle joint pain with lateral swelling from injury, or myalgia. NEUROLOGIC: Denies headache, numbness, or weakness. PSYCHIATRIC: Denies anxiety or depression. All systems reviewed & are unremarkable except as noted in HPI and below PMFSH Past Medical History Medical History Recurrent herpes labialis Environmental and seasonal allergies Mixed hyperlipidemia Essential (primary) hypertension Surgical History Surgical History History of cataract surgery (~2017) b/l History of tubal ligation (~1979) History of cholecystectomy (~1970) History of appendectomy (~1970) Family History Family History Sibling Hypertension Father Cerebrovascular accident Mother Cerebrovascular accident Social History Social History Smoking status: Former smoker Second hand tobacco smoke exposure: No Smoking end date: 09/07/86 Alcohol intake: current Drinks per week: 1 Alcohol use details: beer, radha, rarely Substance use: never Substance use type: does not use Lack of Transportation: No Current Housing: I Have Housing Concerned About Future Housing: No Difficulty Paying Gas/Electric Bills: No Difficulty Paying for Meds: No Currently Unemployed: No Education: High School Diploma/GED Difficulty w/ Childcare or Family Care: No Gender identity (if verbalized by the patient): Female Agree to blood products: Yes Comments At time of signature, agree with nursing past medical, surgical, social and family history. There is no relevant family history pertinent to the presenting complaint Exam Narrative: GENERAL: Well-appearing, well-nourished, and in no acute distress. HEAD: Normocephalic, atraumatic. EYES: PERRLA and EOMI. ENT: Nares clear, no rhinorrhea or epistaxis. Mucous membranes moist. NECK: Supple.no lymphadenopathy CHEST: Clear to auscultation. No respiratory distress. SAO2 96% on room air HEART: Regular rate and rhythm. No murmur heard. Normal peripheral pulses. ABDOMEN: Soft, nontender, nondistended, normal active bowel sounds. EXTREMITIES: Normal range of motion. No edema.Exception noted to swelling and pain to lateral left ankle from fall. Increased pain with movement of left ankle, strong left pedal pulse present, foot warm and pink with sensation intact to left foot. SKIN: Warm, dry, no rash. NEURO: No focal deficits. Alert and oriented x3. Course Course Emergency Course: Patient is aware of diagnosis, understands and agrees to treatment plan.? Anticipatory guidance given.? Patient agrees to follow-up as directed and is aware of reasons to seek care at the emergency department. Portions of this record may have been created with voice recognition software Level of Care: Express Care Visit Vital Signs Vital signs: Vital Signs Temperature 36.3 C L 06/09/25 10:45 Pulse Rate 75 06/09/25 10:45 Respiratory Rate 16 06/09/25 10:45 Blood Pressure 136/84 06/09/25 10:45 Pulse Oximetry 96 06/09/25 10:45 Temperature 36.3 C L 06/09/25 10:45 Pulse Rate 75 06/09/25 10:45 Respiratory Rate 16 06/09/25 10:45 Blood Pressure 136/84 06/09/25 10:45 Pulse Oximetry 96 06/09/25 10:45 Reviewed MDM - Extremity Injury (Lower) Differential Diagnosis Differential diagnosis: Likely ankle sprain and strain, ankle fracture and other (avulaion facture left lateral ankle, pain left ankle) Medical Records Attestation: I reviewed the patient's medical records. Imaging Data Attestation: I personally reviewed and interpreted this imaging study as follows: My impression: Small minimally distracted avulsion fracture at the distal tip of the lateral malleolus Radiologist's impression: Express [facility] [address] [id number] XRay Report Signed Patient: Emma Camacho : 1945 MR#: [id number] Age: 80 Acct:[id number] [facility] Date: 06/09/[address]: Ordering Physician: Deepika Perez APRN Date of Service: 06/09/25 Procedure(s): XR ankle LT min 3V Accession Number(s): [id number] cc: Belia Mena MD; Deepika Perez APRN~ EXAMINATION: XR ankle LT min 3V DATE: 06/09/2025 11:02 INDICATION: Left ankle injury post fall TECHNIQUE: Anteroposterior, oblique, mortise, and lateral views of the left ankle were obtained. COMPARISON: None. FINDINGS: Small minimally distracted avulsion fracture at the distal tip of the lateral malleolus with mild overlying soft tissue swelling. Bone alignment is otherwise normal. No other fractures identified. Mild osteoarthritis at the first metatarsophalangeal joint. Remaining joint spaces are relatively preserved. Small Achilles and plantar calcaneal spurs. Additional small diffuse hepatic ossification at the distal Achilles tendon. No ankle joint effusion. IMPRESSION: 1. Small minimally distracted avulsion fracture at the distal tip of the lateral malleolus. Reviewed, dictated and finalized at location A. Please be advised this is a medical document. It is intended for [id number] communication. It is written in medical language and may contain unfamiliar abbreviations or verbiage. Medical documents are intended to carry relevant information, facts as evident, and the clinical opinion of the practitioner at the time of the encounter. This report may have been done utilizing a voice recognition system. Attempts have been made to correct errors. However, there may be uncorrected grammatical, spelling, and recognition errors present. The file time of this note does not necessarily represent the time of service. Dictated By: Eliezer Giron MD 06/09/25 1123 Signed By: <Electronically signed by Eliezer Giron MD in OV> Critical Care Time Critical Care Time Critical Care Time: No Discharge Plan Discharge Clinical Impression: Closed avulsion fracture of left ankle Qualifiers: Encounter type: initial encounter Qualified Code(s): S82.892A - Other fracture of left lower leg, initial encounter for closed fracture Patient Disposition: Home Condition: Stable Instructions: Antibiotic Form, Avulsion Fracture (ED) Additional Instructions: Orthopedic boot/splint as directed to left foot Limit ambulation Tylenol for lesser pain Ibuprofen regularly for the next 2-3 days for the inflammation Follow-up with orthopedic surgeon as arranged see Dr. Andersen on ThursdayJune 12 at 7755 please call their office [phone] Follow-up with PCP if further problems or concerns Ice to the area 20-30 minutes 4-6 times a day Elevate above heart If your symptoms persist, change or worsen significantly before you can contact your personal physician then please, without delay, go to the emergency department for further evaluation. Follow-up with PCP in 7-10 days or sooner if needed Follow up with PCP soon in regards to your blood pressure which is elevated above threshold for referral. Blood pressure above 120/80 may indicate pre-hypertension. 136/84 preiscescription for walking boot to the left foot given to patient to be filled at [facility] Copy of x-ray report and disk of x-ray film sent with patient Patient Language: Togolese Prescriptions: No Action lisinopril 10 mg tablet 10 mg PO DAILY Qty: 90 3RF rosuvastatin 10 mg tablet 10 mg PO QHS Qty: 90 3RF Women's 50 Plus Multivitamin 400 mcg-500 mg calcium-20 mcg tablet 1 tablet PO DAILY loratadine 10 mg tablet 10 mg PO DAILY Qty: 90 4RF fluticasone propionate 50 mcg/actuation spray,suspension See Rx Instructions .ROUTE .COMPLEX Qty: 48 1RF Dose Instruction: ADMINISTER 2 SPRAYS INTO EACH NOSTRIL DAILY Rx Instructions: ADMINISTER 2 SPRAYS INTO EACH NOSTRIL DAILY Follow-up/Referrals: Lance Mena MD [Primary Care Provider, Family Practice] Dr andersen [Other] Bruce Andersen MD [Physician, Orthopedics] - 3 Days Referral Note: small minimally distracted avulsion fracture at tip of left lateral malleolus. Patient received prescription for ortho boot to be obtained at [place] [facility] Time of Disposition: 12:23 Quality Tabitha Coma Scale Eyes: Open Verbal: Oriented and Alert Motor: Follows Commands Ada Coma Total Score: 15
[2025-06-09 10:45] VITALS: BP 136/84; PULSE 75; RESP 16; TEMP 36.3; O2SAT 96
== END 2025-06-09 12:34 | disposition home or self-care (01) ==
PROVIDERS: Emergency Provider Registered Nurse; PCP Family Medicine
DX: S82.62XA Displaced fracture of lateral malleolus of left fibula, initial encounter for closed fracture (principal); X50.9XXA Other and unspecified overexertion or strenuous movements or postures, initial encounter; Y93.K1 Activity, walking an animal; I10 Essential (primary) hypertension; E78.2 Mixed hyperlipidemia; Z87.891 Personal history of nicotine dependence
CPT/HCPCS: 73610; 99214; G0463